=== PATIENT | female | born 1995 | race Caucasian/White ===

== ENCOUNTER 2019-02-21 23:35 | Observation (INO) | payer MEDICAID ==
[~2019-02-21] VITALS: Ht 157.5 cm; Wt 66.7 kg
[2019-02-22] MEDS ORDERED: PNV1TABL50 MT (00:41)
[2019-02-22 01:06] LABS: CLARITY URINE CLOUDY (CLEAR); COLOR URINE YELLOW (YELLOW); KETONES URINE NEGATIVE (NEGATIVE); LEUKOCYTE ESTERASE URINE TRACE (NEGATIVE); NITRITE URINE NEGATIVE (NEGATIVE); OCCULT BLOOD URINE NEGATIVE (NEGATIVE); PH URINE 7.5 (4.5-8.0); PROTEIN URINE NEGATIVE (NEGATIVE); SPECIFIC GRAVITY URINE 1.011 (1.005-1.030); UROBILINOGEN URINE 0.2 E.U./dL (0.2-1.0)
== END 2019-02-22 03:41 | disposition home or self-care (01) ==
LOC: 8 EST LDRP 23:35
PROVIDERS: ADMIT Obstetrics & Gynecology; ATTEND Obstetrics & Gynecology
DX: O26.893 Other specified pregnancy related conditions, third trimester (principal); R10.30 Lower abdominal pain, unspecified; O99.89 Other specified diseases and conditions complicating pregnancy, childbirth and the puerperium; M54.5 Low back pain; O42.913 Preterm premature rupture of membranes, unspecified as to length of time between rupture and onset of labor, third trimester; Z3A.28 28 weeks gestation of pregnancy
CPT/HCPCS: 59025; 76805; 81003; 99281; G0378

== ENCOUNTER 2019-05-02 10:49 | Observation (INO) | payer MEDICAID ==
[~2019-05-02] VITALS: Ht 157.5 cm; Wt 74.8 kg
[~2019-05-02 10:49] MED LIST: PNV1TABL50 MT
[2019-05-11] MEDS ORDERED: FERROUS SULFATE (05:24)
[2019-05-11] MEDS ORDERED: FOLIC ACID (05:24)
[2019-05-11] MEDS ORDERED: PRENATAL VITAMIN (05:24)
== END 2019-05-02 14:15 | disposition home or self-care (01) ==
LOC: 8 EST LDRP 10:49
PROVIDERS: ADMIT Obstetrics & Gynecology; ATTEND Obstetrics & Gynecology
DX: O62.9 Abnormality of forces of labor, unspecified (principal); Z3A.38 38 weeks gestation of pregnancy
CPT/HCPCS: 99281; G0378